=== PATIENT | male | born 1995 | race Caucasian/White ===

== ENCOUNTER 2016-11-25 00:17 | Emergency (ER) | payer SELFPAY ==
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
--- NOTE | 2016-11-25 07:04 | ED ORDER SUMMARY ---
..... Patient: CHANTELL VELASQUEZ OrderSheet [facility] VisitID: [id number] [place] [address] 21y, M Registration Date/Time: 11/25/2016 ORDER SHEET Weight: 63.5 kg (stated) Allergies: No Known Drug Allergy GENERAL ORDERS: CBC w Diff Urgent (00:25 11/25/2016 So Sullivan) (Ack 0:36 RKaruga) (1:55 JSanders R.N.) CMP Urgent (00:25 11/25/2016 oS Sullivan) (Ack 0:36 RKaruga) (1:55 JSanders R.N.) UA-Culture if indicated Urgent (00:25 11/25/2016 So Sullivan) (Ack 0:36 RKaruga) (2:11 JSanders R.N.) Urine Drug Screen Urgent (00:25 11/25/2016 So Sullivan) (Ack 0:36 RKaruga) (2:11 JSanders R.N.) Acetaminophen Level Urgent (00:25 11/25/2016 So Sullivan) (Ack 0:36 RKaruga) (1:55 JSanders R.N.) Salicylate Level Urgent (00:25 11/25/2016 So Sullivan) (Ack 0:36 RKaruga) (1:55 JSanders R.N.) Ethyl Alcohol Urgent (00:25 11/25/2016 So Sullivan) (Ack 0:36 RKaruga) (1:55 JSanders R.N.) CT Head wo Cont (Pt has known epidural and subdural hematomas from 11/21/16 CT at [facility] w/ MS change) Urgent (01:07 11/25/2016 So Sullivan) (Ack 1:23 Marie TODD Syrup Filterer) (1:55 JSanders R.N.) CSF, Cell Count Urgent (02:41 11/25/2016 RKaruga written order So Sullivan) (Ack 2:42 RKaruga) (3:40 JSanders R.N.) CSF, Culture Urgent (02:41 11/25/2016 Dick written order So Sullivan) (Ack 2:42 JASONarshanta) (3:40 JSanders R.N.) CSF, Glucose Urgent (02:41 11/25/2016 Dick written order So Sullivan) (Ack 2:42 Dick) (3:40 JSanders R.N.) CSF, Protein Urgent (02:41 11/25/2016 Dick written order So Sullivan) (Ack 2:42 JASONarshanta) (3:40 JSanders R.N.) MEDICATION ORDERS: Acetaminophen PO 1,000 mg (NOW) (04:34 11/25/2016 So Sullivan) (Ack 4:39 JQuivey R.N.) (4:45 JQuivey R.N.) IV FLUIDS: IV Saline Lock (00:25 11/25/2016 So Sullivan) (0:55 Marion R.N.) Reglan IV 10 mg (NOW) (04:35 11/25/2016 So Sullivan) (Ack 4:40 JQuivey R.N.) (4:45 JQuivey R.N.) ORDER SHEET NOTES: Reason for Study: Abnormal Labs [Electronically signed by Sandrita Ortega R.N. (12:23 11/25/2016)] [Electronically signed by Karlos Aly Dr. (08:55 11/27/2016)] [Electronically locked/signed by Sandrita Ortega R.N. (12:23 11/25/2016)]
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
--- NOTE | 2016-11-25 07:04 | ED ORDER SUMMARY ---
..... Patient: CHANTELL VELASQUEZ OrderSheet [facility] VisitID: [id number] [place] [address] 21y, M Registration Date/Time: 11/25/2016 ORDER SHEET Weight: 63.5 kg (stated) Allergies: No Known Drug Allergy GENERAL ORDERS: CBC w Diff Urgent (00:25 11/25/2016 So Sullivan) (Ack 0:36 RKaruga) (1:55 JSanders R.N.) CMP Urgent (00:25 11/25/2016 So Sullivan) (Ack 0:36 RKaruga) (1:55 JSanders R.N.) UA-Culture if indicated Urgent (00:25 11/25/2016 So Sullivan) (Ack 0:36 RKaruga) (2:11 JSanders R.N.) Urine Drug Screen Urgent (00:25 11/25/2016 So Sullivan) (Ack 0:36 RKaruga) (2:11 JSanders R.N.) Acetaminophen Level Urgent (00:25 11/25/2016 So Sullivan) (Ack 0:36 RKaruga) (1:55 JSanders R.N.) Salicylate Level Urgent (00:25 11/25/2016 So Sullivan) (Ack 0:36 RKaruga) (1:55 JSanders R.N.) Ethyl Alcohol Urgent (00:25 11/25/2016 So Sullivan) (Ack 0:36 RKaruga) (1:55 JSanders R.N.) CT Head wo Cont (Pt has known epidural and subdural hematomas from 11/21/16 CT at [facility] w/ MS change) Urgent (01:07 11/25/2016 So Sullivan) (Ack 1:23 Marie TODD Patient Safety Attendant) (1:55 JSanders R.N.) CSF, Cell Count Urgent (02:41 11/25/2016 RKaruga written order So Sullivan) (Ack 2:42 RKaruga) (3:40 JSanders R.N.) CSF, Culture Urgent (02:41 11/25/2016 Dick written order So Sullivan) (Ack 2:42 JASONarshanta) (3:40 JSanders R.N.) CSF, Glucose Urgent (02:41 11/25/2016 Dick written order So Sullivan) (Ack 2:42 Dick) (3:40 JSanders R.N.) CSF, Protein Urgent (02:41 11/25/2016 Dick written order So Sullivan) (Ack 2:42 JASONarshanta) (3:40 JSanders R.N.) MEDICATION ORDERS: Acetaminophen PO 1,000 mg (NOW) (04:34 11/25/2016 So Sullivan) (Ack 4:39 JQuivey R.N.) (4:45 JQuivey R.N.) IV FLUIDS: IV Saline Lock (00:25 11/25/2016 So Sullivan) (0:55 Marion R.N.) Reglan IV 10 mg (NOW) (04:35 11/25/2016 So Sullivan) (Ack 4:40 JQuivey R.N.) (4:45 JQuivey R.N.) ORDER SHEET NOTES: Reason for Study: Abnormal Labs [Electronically signed by Sandrita Ortega R.N. (12:23 11/25/2016)] [Electronically signed by Karlos Aly Dr. (08:55 11/27/2016)] [Electronically locked/signed by Sandrita Ortega R.N. (12:23 11/25/2016)]
--- NOTE | 2016-11-25 13:23 | DIAGNOSTIC IMAGING REPORT ---
PROCEDURE: CT HEAD WITHOUT CONTRAST INDICATION: CONCUSSION, altered mental status TECHNIQUE: Axial CT images were acquired through the head. Coronal and sagittal reformations were created. COMPARISON: 11/21/2016 from 08:22 a.m. and 11/21/2016 from 01:30 a.m. FINDINGS: Left occipital extra-axial hematoma is evolving, now with mixed density, but has increased in size and thickness, previously measuring 8 mm, now measuring 12 mm. Mass effect on the underlying left cerebellar hemisphere has mildly increased. Mild elevation of the left tentorial surface. Subdural hematoma layering evenly along the tentorium. Stable to decreased conspicuity of left lateral frontal extra-axial hypodensity (questionable chronic hematoma). Interval increase in size of intraparenchymal hematoma in the right mid temporal lobe, now measuring 16 x 12 mm, previously 13 x 9 mm. Relatively stable size and configuration of multiple small parenchymal and subarachnoid hemorrhages laterally in the right anterior temporal and inferior frontal lobe. The distal fourth ventricles quite diminutive in size and there has been very subtle increase in size of the lateral ventricles and third ventricle. Interval resolution of air within the left occipital extra-axial hematoma. Persistent, subtle fracture/diastasis of the left temporal occipital suture just dorsal to the mastoid cavity. There is a clot in the sphenoid sinus and fluid in both mastoid cavities. There is mucosal thickening and small amount of fluid in both maxillary sinuses. IMPRESSION: 1. Subtle progression of left occipital extra-axial hematoma with increased underlying mass effect, particularly on the fourth ventricle. 2. Subtle increase in size of lateral and third ventricles. 3. Slight increased size of right inferior mid temporal parenchymal hematoma. 4. Stable right lateral temporal and right inferior frontal subarachnoid and parenchymal contusions peripherally. 5. Stable subdural hemorrhage along the and decrease in questionable left lateral frontal chronic subdural hematoma. 6. [facility] ( with access only to prior report). Dr Mehta subsequently discussed with Dr. Aly in the emergency room at 08:23 hours before images became available for review, and with Dr. Momin in the emergency room (once prior images became available for comparison) at [address] scans at this facility use dose modulation, iterative reconstruction, and/or weight-based dosing when appropriate to reduce radiation dose to as low as reasonably achievable.
--- NOTE | 2016-11-27 08:55 | ED MAR SUMMARY ---
..... Medication Administration Record [facility] [address] [place] [address] Patient: CHANTELL VELASQUEZ Visit ID: [id number] 21y, M Weight: 63.5 kg Height/Length: 64 in BMI: 24 ALLERGIES: No Known Drug Allergy Given 04:40 11/25/2016 [place], R.N. Medication Administered: ACETAMINOPHEN [PO] (APAP), Dose: 1000 mg PO. Medication Ordered: Acetaminophen PO 1,000 mg (NOW). Given 04:42 11/25/2016 [place], R.N. Medication Administered: REGLAN [IVP] (METOCLOPRAMIDE HCL), Dose: 10 mg IVP over 2 minute(s), Site: #1 right AC. Medication Ordered: Reglan IV 10 mg (NOW).
--- NOTE | 2016-11-27 08:55 | ED MED RECONCILIATION SUMMARY ---
Patient: CHANTELL VELASQUEZ Medication Reconciliation Report [facility] VisitID: [id number] [address] [place] [address] 21y, M Registration Date/Time: 11/25/2016 Weight: 63.5 kg Height/Length: 64 in. BMI: 24.0 ALLERGIES: No Known Drug Allergy The patient's Home Medications are listed below: NONE. The source(s) of the original Home Medication information: Not obtained. The following Medications were given to the patient in the Emergency Department: Acetaminophen [PO] PO 1000 mg, administered: 11/25/2016 4:40:00 AM Reglan [IVP] IVP 10 mg, administered: 11/25/2016 4:42:00 AM The following Medications were prescribed to the patient: None.
--- NOTE | 2016-11-27 08:55 | ED DISCHARGE INSTRUCTIONS ---
Patient: CHANTELL VELASQUEZ General Instructions [facility] VisitID: [id number] [place] [address] 21y, M Registration Date/Time: 11/25/2016 Acute mental status change with confusion. INSTRUCTIONS Follow-up: Follow up with your doctor in about two days. Call for an appointment. Screening today revealed the patient's blood pressure to be in the pre-hypertensive range. The patient should follow up with a primary care provider for blood pressure management. ADDITIONAL INFORMATION Confusion Confusion is a change in a persons ability to think clearly. There may be trouble recognizing familiar people and places, or knowing what day it is. Memory, judgement and decision-making may also be affected. In severe cases there may be limited or no response to verbal commands. Confusion may occur suddenly or develop gradually over time. There are many injuries and medical conditions that can cause this problem. These include brain injury, side effect of medication, intoxication, withdrawal from drugs, infection, stroke, dementia,mental illness and other causes. The exam and testing today did not show the cause of this problem. Further testing will be needed. Specific treatment and hope for recovery depend on the cause of this symptom. Home Care: Be sure someone is with the confused person at all times. He/she should not be left alone or unsupervised. Keep medicines (prescription and cvnq-zjm-hzstnal) in a secure place, under the caregivers control. A person with confusion should not be allowed to take their own medicines.This needs to be supervised by the caregiver. Ways to help a person with confusion: Activities:Establish a daily routine. Change can be a source of stress for someone with confusion. Make a time schedule for common tasks such as: bathing, dressing, taking medicines, meals, going for walks, shopping, naps and bed time. Communication:Speak slowly and clearly with a gentle tone of voice. Use short simple words and sentences. Ask one question at a time. Do not interrupt, criticize or argue. Be calm and supportive. Use friendly facial expressions. Use pointing and touching to help communicate. If there has been loss of long-term memory, do not ask questions about past events. This would only cause frustration for the person. Behavioral tips:Use lists, signs, family photos, clocks and calendars as memory aids. Label cabinets and drawers. Try to distract, not confront, the patient. When he/she becomes frustrated or upset, redirect his/her attention to eating or some other activity of interest. Medical-Legal tips: If this proves to be a permanent condition, talk to your doctor and/or bulk plant agent about getting a Power of Director Retirement for health care and for financial decisions. It is best to do this while the person can still sign legal documents and make his/amadeo own legal decisions. Otherwise, a court order will be required. Follow-Up with the patients doctor or as advised by our staff for further testing. Get Prompt Medical Attention if any of the following occur: Frequent falling Refusal to eat or drink Violent behavior or behavior becomes too difficult to manage at home Increased drowsiness, or failure to respond normally Increasing headache, nausea or repeated vomiting Numbness or weakness of the face, one arm or one leg Slurred speech, trouble speaking, walking or seeing Fainting spell, dizziness or seizure Unexplained fever over 100.4 F (38.0 C) oral You have been given the following additional information: Confusion (Electronically signed by Karlos Aly Dr. 11/27/2016 8:55)
--- NOTE | 2016-11-27 08:55 | ED DISCHARGE INSTRUCTIONS ---
Patient: CHANTELL VELASQUEZ General Instructions [facility] VisitID: [id number] Mihaela Andrade [address] 21y, M Registration Date/Time: 11/25/2016 Acute mental status change with confusion. INSTRUCTIONS Follow-up: Follow up with your doctor in about two days. Call for an appointment. Screening today revealed the patient's blood pressure to be in the pre-hypertensive range. The patient should follow up with a primary care provider for blood pressure management. ADDITIONAL INFORMATION Confusion Confusion is a change in a persons ability to think clearly. There may be trouble recognizing familiar people and places, or knowing what day it is. Memory, judgement and decision-making may also be affected. In severe cases there may be limited or no response to verbal commands. Confusion may occur suddenly or develop gradually over time. There are many injuries and medical conditions that can cause this problem. These include brain injury, side effect of medication, intoxication, withdrawal from drugs, infection, stroke, dementia,mental illness and other causes. The exam and testing today did not show the cause of this problem. Further testing will be needed. Specific treatment and hope for recovery depend on the cause of this symptom. Home Care: Be sure someone is with the confused person at all times. He/she should not be left alone or unsupervised. Keep medicines (prescription and [id number]) in a secure place, under the caregivers control. A person with confusion should not be allowed to take their own medicines.This needs to be supervised by the caregiver. Ways to help a person with confusion: Activities:Establish a daily routine. Change can be a source of stress for someone with confusion. Make a time schedule for common tasks such as: bathing, dressing, taking medicines, meals, going for walks, shopping, naps and bed time. Communication:Speak slowly and clearly with a gentle tone of voice. Use short simple words and sentences. Ask one question at a time. Do not interrupt, criticize or argue. Be calm and supportive. Use friendly facial expressions. Use pointing and touching to help communicate. If there has been loss of long-term memory, do not ask questions about past events. This would only cause frustration for the person. Behavioral tips:Use lists, signs, family photos, clocks and calendars as memory aids. Label cabinets and drawers. Try to distract, not confront, the patient. When he/she becomes frustrated or upset, redirect his/her attention to eating or some other activity of interest. Medical-Legal tips: If this proves to be a permanent condition, talk to your doctor and/or consignee about getting a Power of [employer] for health care and for financial decisions. It is best to do this while the person can still sign legal documents and make his/amadeo own legal decisions. Otherwise, a court order will be required. Follow-Up with the patients doctor or as advised by our staff for further testing. Get Prompt Medical Attention if any of the following occur: Frequent falling Refusal to eat or drink Violent behavior or behavior becomes too difficult to manage at home Increased drowsiness, or failure to respond normally Increasing headache, nausea or repeated vomiting Numbness or weakness of the face, one arm or one leg Slurred speech, trouble speaking, walking or seeing Fainting spell, dizziness or seizure Unexplained fever over 100.4 F (38.0 C) oral You have been given the following additional information: Confusion (Electronically signed by Karlos Aly Dr. 11/27/2016 8:55)
--- NOTE | 2016-11-27 08:55 | ED MED RECONCILIATION SUMMARY ---
Patient: CHANTELL VELASQUEZ Medication Reconciliation Report [facility] VisitID: [id number] [address] [place] [address] 21y, M Registration Date/Time: 11/25/2016 Weight: 63.5 kg Height/Length: 64 in. BMI: 24.0 ALLERGIES: No Known Drug Allergy The patient's Home Medications are listed below: NONE. The source(s) of the original Home Medication information: Not obtained. The following Medications were given to the patient in the Emergency Department: Acetaminophen [PO] PO 1000 mg, administered: 11/25/2016 4:40:00 AM Reglan [IVP] IVP 10 mg, administered: 11/25/2016 4:42:00 AM The following Medications were prescribed to the patient: None.
--- NOTE | 2016-11-27 08:55 | ED MAR SUMMARY ---
..... Medication Administration Record [facility] [address] [place] [address] Patient: CHANTELL VELASQUEZ Visit ID: [id number] 21y, M Weight: 63.5 kg Height/Length: 64 in BMI: 24 ALLERGIES: No Known Drug Allergy Given 04:40 11/25/2016 Black Crain, R.N. Medication Administered: ACETAMINOPHEN [PO] (APAP), Dose: 1000 mg PO. Medication Ordered: Acetaminophen PO 1,000 mg (NOW). Given 04:42 11/25/2016 Black Crain, R.N. Medication Administered: REGLAN [IVP] (METOCLOPRAMIDE HCL), Dose: 10 mg IVP over 2 minute(s), Site: #1 right AC. Medication Ordered: Reglan IV 10 mg (NOW).
== END 2016-11-25 11:00 | disposition home or self-care (01) ==
LOC: ED SRH 00:17
DX: R41.82 Altered mental status, unspecified (principal); R41.0 Disorientation, unspecified; F17.210 Nicotine dependence, cigarettes, uncomplicated
CPT/HCPCS: 90004; 90100; 90134; 90309; 92010; 92070; 92653; 92760; 92761; 92762; 92763; 92764; 92765; 92766; 92767; 92780; 95030; 95059; 97000

== ENCOUNTER 2016-11-25 13:04 | Emergency (ER) | payer SELFPAY ==
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
--- NOTE | 2016-11-25 14:10 | ED ORDER SUMMARY ---
..... Patient: CHANTELL VELASQUEZ OrderSheet [facility] VisitID: [id number] [place] [address] 21y, M Registration Date/Time: 11/25/2016 ORDER SHEET Weight: 69.8 kg (stated) Allergies: No Known Drug Allergy GENERAL ORDERS: MEDICATION ORDERS: IV FLUIDS: Dilaudid IV 0.5 mg (HIGH ALERT MEDICATION, NOW) (14:01 11/25/2016 LWhalen R.N. verbal order read back to Margarita JACQUES) (14:03 LWhalen R.N.) Zofran IV 4 mg (NOW) (14:02 11/25/2016 LWhalen R.N. verbal order read back to Margarita JACQUES) (14:03 LWhalen R.N.) IV NS with Normal Saline 1 Liter: initial bolus none -, then 125 mL/hr for X1 (NOW); Routine (14:02 11/25/2016 LWhalen R.N. verbal order read back to Margarita JACQUES) (14:04 LWhalen R.N.) ORDER SHEET NOTES: [Electronically signed by Sandrita Ortega R.N. (16:24 11/25/2016)] [Electronically signed by Abdirahman Momin MD (19:34 11/25/2016)] [Electronically locked/signed by Sandrita Ortega R.N. (16:24 11/25/2016)]
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
--- NOTE | 2016-11-25 14:10 | ED ORDER SUMMARY ---
..... Patient: CHANTELL VELASQUEZ OrderSheet [facility] VisitID: [id number] [place] [address] 21y, M Registration Date/Time: 11/25/2016 ORDER SHEET Weight: 69.8 kg (stated) Allergies: No Known Drug Allergy GENERAL ORDERS: MEDICATION ORDERS: IV FLUIDS: Dilaudid IV 0.5 mg (HIGH ALERT MEDICATION, NOW) (14:01 11/25/2016 LWhalen R.N. verbal order read back to Margarita JACQUES) (14:03 LWhalen R.N.) Zofran IV 4 mg (NOW) (14:02 11/25/2016 LWhalen R.N. verbal order read back to Margarita JACQUES) (14:03 LWhalen R.N.) IV NS with Normal Saline 1 Liter: initial bolus none -, then 125 mL/hr for X1 (NOW); Routine (14:02 11/25/2016 LWhalen R.N. verbal order read back to Margarita JACQUES) (14:04 LWhalen R.N.) ORDER SHEET NOTES: [Electronically signed by Sandrita Ortega R.N. (16:24 11/25/2016)] [Electronically signed by Abdirahman Momin MD (19:34 11/25/2016)] [Electronically locked/signed by Sandrita Ortega R.N. (16:24 11/25/2016)]
--- NOTE | 2016-11-25 19:35 | ED MED RECONCILIATION SUMMARY ---
Patient: CHANTELL VELASQUEZ Medication Reconciliation Report [facility] VisitID: [id number] [address] [place] [address] 21y, M Registration Date/Time: 11/25/2016 Weight: 69.8 kg Height/Length: 64 in. BMI: 26.4 ALLERGIES: No Known Drug Allergy The patient's Home Medications are listed below: NONE. The source(s) of the original Home Medication information: Not obtained. The following Medications were given to the patient in the Emergency Department: Dilaudid [IVP] IVP 0.5 mg, administered: 11/25/2016 2:03:00 PM Zofran [IVP] IVP 4 mg, administered: 11/25/2016 2:03:00 PM IV NS IV Fluids bolus 0, then 125 mL/hr, administered: 11/25/2016 2:04:00 PM The following Medications were prescribed to the patient: None.
--- NOTE | 2016-11-25 19:35 | ED DISCHARGE INSTRUCTIONS ---
Patient: CHANTELL VELASQUEZ General Instructions [facility] VisitID: [id number] [address] [place] [address] 21y, M Registration Date/Time: 11/25/2016 Changed mental status. Left subdural hematoma. (Electronically signed by Abdirahman Momin MD 11/25/2016 19:34)
--- NOTE | 2016-11-25 19:35 | ED MAR SUMMARY ---
..... Medication Administration Record [facility] [address] [place] [address] Patient: CHANTELL VELASQUEZ Visit ID: [id number] 21y, M Weight: 69.8 kg Height/Length: 64 in BMI: 26.4 ALLERGIES: No Known Drug Allergy Given 14:03 11/25/2016 Sandrita Ortega R.N. Medication Administered: DILAUDID [IVP] (HYDROMORPHONE HCL PF), Dose: 0.5 mg IVP over 2 minute(s), Site: #1 right forearm. Medication Ordered: Dilaudid IV 0.5 mg (HIGH ALERT MEDICATION, NOW). Given 14:03 11/25/2016 Sandrita Ortega R.N. Medication Administered: ZOFRAN [IVP] (ONDANSETRON HCL), Dose: 4 mg IVP over 2 minute(s), Site: #1 right forearm. Medication Ordered: Zofran IV 4 mg (NOW). Start 14:04 11/25/2016 Sandrita Ortega R.N., Continued Upon Transfer 15:15 11/25/2016 Sandrita Ortega R.NKenny Medication Administered: IV NS (SALINE), Dose: IV Fluids over 6 hour(s), Rate: 125 mL/hr, Dispensed: 1000 mL bag, Site: #1 right forearm. Medication Ordered: IV NS with Normal Saline 1 Liter: initial bolus none -, then 125 mL/hr for X1 (NOW); Routine.
--- NOTE | 2016-11-25 19:35 | ED MAR SUMMARY ---
..... Medication Administration Record [facility] [address] [place] [address] Patient: CHANTELL VELASQUEZ Visit ID: [id number] 21y, M Weight: 69.8 kg Height/Length: 64 in BMI: 26.4 ALLERGIES: No Known Drug Allergy Given 14:03 11/25/2016 Sandrita Ortega R.N. Medication Administered: DILAUDID [IVP] (HYDROMORPHONE HCL PF), Dose: 0.5 mg IVP over 2 minute(s), Site: #1 right forearm. Medication Ordered: Dilaudid IV 0.5 mg (HIGH ALERT MEDICATION, NOW). Given 14:03 11/25/2016 Sandrita Ortega R.N. Medication Administered: ZOFRAN [IVP] (ONDANSETRON HCL), Dose: 4 mg IVP over 2 minute(s), Site: #1 right forearm. Medication Ordered: Zofran IV 4 mg (NOW). Start 14:04 11/25/2016 Sandrita Ortega R.N., Continued Upon Transfer 15:15 11/25/2016 aSndrita Ortega R.NKenny Medication Administered: IV NS (SALINE), Dose: IV Fluids over 6 hour(s), Rate: 125 mL/hr, Dispensed: 1000 mL bag, Site: #1 right forearm. Medication Ordered: IV NS with Normal Saline 1 Liter: initial bolus none -, then 125 mL/hr for X1 (NOW); Routine.
--- NOTE | 2016-11-25 19:35 | ED DISCHARGE INSTRUCTIONS ---
Patient: CHANTELL VELASQUEZ General Instructions [facility] VisitID: [id number] [address] [place] [address] 21y, M Registration Date/Time: 11/25/2016 Changed mental status. Left subdural hematoma. (Electronically signed by Abdirahman Momin MD 11/25/2016 19:34)
--- NOTE | 2016-11-25 19:35 | ED MED RECONCILIATION SUMMARY ---
Patient: CHANTELL VELASQUEZ Medication Reconciliation Report [facility] VisitID: [id number] [address] [place] [address] 21y, M Registration Date/Time: 11/25/2016 Weight: 69.8 kg Height/Length: 64 in. BMI: 26.4 ALLERGIES: No Known Drug Allergy The patient's Home Medications are listed below: NONE. The source(s) of the original Home Medication information: Not obtained. The following Medications were given to the patient in the Emergency Department: Dilaudid [IVP] IVP 0.5 mg, administered: 11/25/2016 2:03:00 PM Zofran [IVP] IVP 4 mg, administered: 11/25/2016 2:03:00 PM IV NS IV Fluids bolus 0, then 125 mL/hr, administered: 11/25/2016 2:04:00 PM The following Medications were prescribed to the patient: None.
== END 2016-11-25 15:18 | disposition short-term general hospital (02) ==
LOC: ED SRH 13:04
DX: S06.5X0A Traumatic subdural hemorrhage without loss of consciousness, initial encounter (principal); R41.82 Altered mental status, unspecified; S00.83XA Contusion of other part of head, initial encounter; H73.892 Other specified disorders of tympanic membrane, left ear; F17.210 Nicotine dependence, cigarettes, uncomplicated; F12.10 Cannabis abuse, uncomplicated